=== PATIENT | female | born 1985 | race Caucasian/White ===

== ENCOUNTER 2019-09-15 18:41 | Inpatient (IN) | payer BC ==
[2019-09-15] MEDS ORDERED: BUTORPHANOL 1 MG/ML INJ IV PRN (21:17)
[2019-09-15] MEDS ORDERED: METHYLERGONOVINE 0.2MG/ML AMP IM PRN (21:17)
[2019-09-15] MEDS ORDERED: Ringers Lactate 1,000 ML IV PRN (21:17)
[2019-09-15] MEDS ORDERED: PROMETHAZINE INJ 25 MG/ML AMP IV PRN (21:17)
[2019-09-15] MEDS ORDERED: MEPERIDINE HCL 25 MG/0.5 ML IV PRN (21:17)
[2019-09-15] MEDS ORDERED: CARBOPROST TROME 250 MCG/ML IM PRN (21:17)
[2019-09-15 21:34] VITALS: BMI 30.9
[2019-09-15 21:43] LABS: Urine Appearance CLEAR; Urine Bilirubin NEGATIVE (NEG); Urine Blood NEGATIVE (NEG); Urine Color YELLOW; Urine Glucose NEGATIVE (NEG); Urine Protein NEGATIVE (NEG); Urine Specific Gravity <=1.005 (1.005-1.030)
[2019-09-15 21:48] LABS: Absolute Lymphocytes (CBC) 2.5 K/uL (0.7-4.9); Basophils % 0.2 % (0-1.3); Hematocrit 40.5 % (36.0-45.0); Lymphocytes % 26.7 % (15.3-44.8); MPV 11.6 fL (7.6-11.3); RBC Red Blood Cell Count 4.68 M/uL (3.86-4.86)
[2019-09-15 21:52] LABS: Urine Microscopic Reflex NO UMIC
[2019-09-15] MEDS ORDERED: Ringers Lactate 1,000 ML IV SCH (22:00)
[2019-09-15] MEDS ORDERED: OXYTOCIN/LR 20 UNIT/1,000 ML BAG IV SCH (22:00)
[2019-09-15] MEDS ORDERED: LIDOCAINE 1% MPF 30 ML VIAL ONE (23:09)
--- NOTE | 2019-09-16 00:21 | PREOPHP ---
Date of Admission: 09/15/2019 History: Ms. Hatfield is a 33-year-old female, 4, para 3-0-0-3, now at approx imately 39 weeks gestation, admitted in labor, noted to be 3 cm on admission. She denies rupture of membranes. Started yazmin somewhat earlier today. Past Medical History: Please see record. Family History: Please see record. Review of Systems: She reports no recent cough, cold, fever, or chills. No recent nausea or vomiting. No breast knots or lumps. No bowel or bladder issues. has been active. Physical Examination: General: Pleasant female, in mild discomfort. Neck: Supple without adenopathy or thyromegaly. Lungs: Clear. Cardiac: Regular rate and rhythm without murmurs. Breasts: Not examined. Abdomen: Estimated weight of 7+ to 8+ pounds. Pelvic: Cervix now is 7+ cm, dilated, vertex presentation, -1 station. Extremities: No cyanosis, clubbing, or edema. Impression: Term , active labor. Plan: We will await spontaneous vaginal delivery. MOLINA/FILIPPO Voice ID: [id number]
[2019-09-16] MEDS ORDERED: ACETAMINOPHEN 500 MG TAB PO PRN (01:08)
[2019-09-16] MEDS ORDERED: METHYLERGONOVINE 0.2MG/ML AMP IM PRN (01:08)
[2019-09-16] MEDS ORDERED: METHYLERGONOVINE 0.2 MG TAB PO PRN (01:08)
[2019-09-16] MEDS ORDERED: CARBOPROST TROME 250 MCG/ML IM PRN (01:08)
--- NOTE | 2019-09-16 01:12 | P.BOP ---
Preoperative diagnosis: 39 wk , AMA Postoperative diagnosis: SCVD viable female , mild shoulder dystocia Primary procedure: SCVD Secondary procedure: Samuel Estimated blood loss: less than 50 Complications: None Transferred to: Other (273) Condition: Good
[2019-09-16] MEDS ORDERED: OXYTOCIN/LR 20 UNIT/1,000 ML BAG IV SCH (02:00)
[2019-09-16 03:41] LABS: RPR (Rapid Plasma Reagin) NON-REACT (NON-REACT)
[2019-09-16] MEDS: IBUPROFEN 200 MG TAB PO PRN ×2 (05:30→12:25)
--- NOTE | 2019-09-16 09:09 | DN ---
Surgeon: Vimal Goldsmith MD Ms. Hatfield is a 33-year-old female, 4, para 3-0-0-3 at 39 weeks' gestation, admitted in early labor. She had a first stage of labor of approximately 3 hours 11 minutes, second stage of labor of 26 minutes. She delivered by spontaneous controlled vaginal delivery a 6-pound 12- ounce female infant. After delayed cord clamping, the was placed on mother's upper abdomen. Cord blood was obtained. Placenta was spontaneously expelled and appeared to be intact. Intrauterin e examination revealed no retained placental fragments. Quantitative blood loss was 114 mL. She had mild shoulder dystocia, treated with Samuel maneuver, received 1 mg of Stadol, 12.5 mg of Phenerg an IV for analgesia during her labor course. She suffered no lacerations. MOLINA/FILIPPO Voice ID: [id number] Report ID: [id number]
[2019-09-16] MEDS ORDERED: IBUPROFEN 600 MG TAB PO PRN (15:00)
[2019-09-17 08:37] VITALS: BP 127/76; TEMP 98.9
--- NOTE | 2019-09-17 10:34 | DS ---
Final Hospital Discharge Diagnosis: Term delivered, advanced maternal age. Complications: None. Procedures: Artificial rupture of membranes, spontaneous controlled vaginal delivery of viable femal e . Hospital Course: The patient is a 33-year-old female, 4, para 3-0-0-3 at 3 9 weeks gestation, admitted in active labor. She delivered a 6-pound 12-ounce female , 9 and 9 with IV analgesia. Was dismissed on the first day, ambulatory, on a select diet wi th routine post vaginal delivery activity restrictions, to be seen back in the office in 6 weeks. La b work included an admission hemoglobin and hematocrit of 13.3 and 40.5, dismissal of 35.6. She had a negative urinalysis, nonreactive RPR. She has Rh positive blood type. She was dismissed, to oumar valadez taking her iron and vitamins with usual post vaginal delivery activity restrictions. MOLINA/FILIPPO Voice ID: [id number] Report ID: [id number]
[2019-09-19 01:55] LABS: HBsAG Nonreactive (Nonreactive)
== END 2019-09-17 10:25 | disposition home or self-care (01) | DRG 807 ==
LOC: L&D 18:41 → 2ND-WC 20:48
PROVIDERS: ADMIT Specialist; ATTEND Specialist
PROC: 10E0XZZ Delivery of Products of Conception, External Approach (ICD-10-PCS; principal; 2019-09-16)
PROC: 10907ZC Drainage of Amniotic Fluid, Therapeutic from Products of Conception, Via Natural or Artificial Opening (ICD-10-PCS; 2019-09-16)
DX: O66.0 Obstructed labor due to shoulder dystocia (principal); Z37.0 Single live birth; Z3A.39 39 weeks gestation of pregnancy
CPT/HCPCS: 36415; 81003; 85014; 85025; 86592; 86850; 86900; 86901; 87340; J0595; J2210; J2550; J2590; J7120

== ENCOUNTER 2019-11-23 06:28 | Day surgery (SDC) | payer BC ==
[2019-11-22 13:17] LABS: Absolute Lymphocytes (CBC) 2.4 K/uL (0.7-4.9); Basophils % 0.3 % (0-1.3); Hematocrit 39.1 % (36.0-45.0); Lymphocytes % 43.2 % (15.3-44.8); MPV 8.4 fL (7.6-11.3); RBC Red Blood Cell Count 4.55 M/uL (3.86-4.86)
[2019-11-22 13:20] LABS: Urine Appearance CLOUDY; Urine Bilirubin NEGATIVE (NEG); Urine Blood 3+ (NEG); Urine Color YELLOW; Urine Glucose NEGATIVE (NEG); Urine Protein NEGATIVE (NEG); Urine Urobilinogen 0.2 mg/dL (0.2-1.0); Urine pH 5.5 (5.0-7.0)
[2019-11-22 13:41] LABS: Thyroid Stimulating Hormone 0.723 uIU/mL (0.360-3.740)
[2019-11-22 13:44] LABS: Urine Bacteria 20-50 /HPF (<20); Urine Culture Reflex Order REFLEXED; Urine Microscopic Reflex ORDER UMIC
[2019-11-23] MEDS ORDERED: SCOPOLAMINE HYDROBROMIDE PATCH TD ONE (07:01)
[2019-11-23] MEDS ORDERED: Ringers Lactate 1,000 ML IV ONE (07:02)
[2019-11-23] MEDS ORDERED: NA CHLORIDE 0.9% 1,000 ML ONE (07:07)
[2019-11-23] MEDS ORDERED: propofoL 200 MG/20 ML VIAL IV ONE ×2 (07:31→09:44)
[2019-11-23] MEDS ORDERED: FENTANYL CITR 100 MCG/2 ML ONE ×2 (07:31→09:42)
[2019-11-23] MEDS ORDERED: LIDOCAINE 2% MPF 5 ML VIAL ONE (07:31)
[2019-11-23] MEDS ORDERED: ROCURONIUM 50 MG/5 ML VIAL IV ONE (07:31)
[2019-11-23] MEDS ORDERED: MIDAZOLAM HCL 2 MG/2 ML INJ ONE (07:32)
[2019-11-23] MEDS ORDERED: KETOROLAC 30 MG/ML INJ ONE (07:32)
[2019-11-23] MEDS ORDERED: ONDANSETRON 4 MG/2 ML VIAL ONE (07:32)
[2019-11-23] MEDS ORDERED: dexAMETHasone 10 MG/ML VIAL ONE (07:32)
[2019-11-23] MEDS: BUPIVACAINE 0.5% Inj,MDV 50 mL VIAL ONE ×2 (07:54→08:15)
[2019-11-23] MEDS ORDERED: EPHEDRINE SULF 50 MG/ML VIAL ONE (08:51)
[2019-11-23] MEDS: Ringers Lactate 1,000 ML IV ONE ×2 (08:57→09:03)
[2019-11-23] MEDS ORDERED: GLYCOPYRROLATE 0.2 MG/ML SYR ONE (09:54)
[2019-11-23] MEDS ORDERED: NEOSTIGMINE 1 MG/ML -5 ML ONE (09:55)
[2019-11-23] MEDS ORDERED: ALBUTEROL 2.5 MG/3 ML NEB SOL ONE (10:22)
[2019-11-23 11:07] VITALS: O2SAT 98
[2019-11-23] MEDS ORDERED: HYDROCODONE/APAP 5/325 MG TAB ONE (11:47)
[2019-11-23 12:15] VITALS: BP 117/70; TEMP 98.3
--- NOTE | 2019-11-24 08:20 | OP ---
Date of Procedure: 11/23/2019 Surgeon: Natasha Lala MD Central Service Tech: Charley Soliz. Preoperative Diagnoses: Large left adnexal mass, possible dermoid, pelvic pain, menorrhagia, 2 month s , patient with intrauterine device. Postoperative Diagnoses: Large left adnexal mass, possible dermoid, pelvic pain, menorrhagia, 2 rossi hs , patient with intrauterine device, possible retained products of conception and left ov elias dermoid. Procedures Performed: 1.Removal of IUD, diagnostic hysteroscopy, D and C. 2.Diagnostic laparoscopy, pelvic washings, left ovarian cystectomy. Anesthesia: General endotracheal. Specimens: Left ovarian cyst (keratoma), endometrial curettings and possible retained products. IUD was discarded. Estimated Blood Loss: Minimal. Urine Output: 200. Complications: No complications. Drains: No drains. Condition: The patient's condition is stable. Findings: Some retained products appeared to be placental tissue in the posterior wall and the top o f the endometrial canal close to the left cornual end. Rest of the endometrium appeared to be unrema rkable. Then, the left ovarian dermoid appeared to be large and multi cystic, was excised completely and the ovary was retained. Both tubes appeared to be unremarkable. The right ovary was absent. The patient is a 33-year-old referred from Dr. Goldsmith for the left adnexal mass, which was close t o 10 cm and another one that was 3.5 cm. There was a suspicion that this could be from the right or the left. It was unclear after imaging. 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 She has had all vaginal deliveries, most recent one 2 months ago and her bleeding has been heavy when she presented to the office for evaluation for her teratomas. I decided to perform hysteroscop y, possible D and C since we were in the OR and if there was a D and C to be performed that I would r emove the IUD. The patient understood this. She consented she needs control with some form of intrauterine device, so she was given depot medroxyprogesterone for stopping her bleeding, which had slowed down her bleeding, however long-term is the Mirena. She was consented for an ovarian cystectomy and the procedure as above, hysteroscopy, D and C. Description Of Procedure: She was consented in the hospital before the surgery again and taken back to the OR. No antibiotics were indicated for this procedure, placed in a supine fashion. General an esthesia was given, placed in a dorsal lithotomy position. Pelvic exam was performed. Uterus found to be anteflexed, left adnexal mass mobile, was found about 10-12 cm and posterior cul-de-sac smooth and free. Abdomen, vulva, vagina, and perineum were prepped and draped in a sterile fashion. Arms t ucked by the side, placed the patient in dorsal lithotomy using Uriah stirrups. Time-out was done. After draping the patient appropriately, speculum was placed to expose the cervix. Anterior lip gras ped with 2 Allis clamps. The IUD had been displaced with the prep, was removed. Another IUD from [facility] office was ordered in order for her to be placed in the OR if there was no D and C needed. Once [facility] IUD was in the OR, then the case was started. So once the slimline scope was introduced, traversed under direct vision through the cervical canal into the uterine cavity. The endometrial canal appea red to be mostly undistorted. There was tissue as described above. On the posterior wall fundal tow ards the left cornual end, this probably is consistent with the description of tissue on the transvag inal ultrasound that measured up to 3 cm, so I decided that I would remove this tissue, so with the l argest curette present on the table, the uterine cavity was entered and 2 large pieces of this tissue was removed, 1 cm and then 2 cm. Then the scope was replaced. There was no more tissue left behind after taking good visual of this area again with the hysteroscope. Then, curettage was performed in general gently all around the endometrial cavity. This is to rule out gestational trophoblastic dis ease placenta either one could be the differential. The diagnostic VCare was introduced into the uterus and I had no intentions of replacing the IUD at t his time because I want to find out the pathology on the tissue before this was placed. After a Franco was placed and connected to a drainage bag this area was draped. 1 cm infraumbilical incision made with a scalpel using the open laparoscopy technique. Fascia incise d and tagged with 0 Vicryl sutures. Peritoneum entered sharply. S-retractors were placed. Xiomara i ntroduced. Insufflation done. Site of entry was checked, unremarkable. Patient placed in Trendelen prosper. Lower abdominal surfaces were all visualized. Omentum slightly adhered to the area of the rig ht oophorectomy, but no other remarkable adhesions. The ovary appeared to be on the left side with t he cyst and the cyst is multiloculated. The area of transition between the normal ovarian tissue and the cyst was identified after ports were placed suprapubic, 1 in each of the lower quadra nts, left and right under direct vision after injecting Marcaine at both the fascia and the skin. Go od visualization was done. Pelvic washings were performed and retrieved using a monopolar Storz needle, an incision was made at the junction between the cyst and the dermoid. A large incisi on was made in a circumferential fashion along the base of the cyst. Once the incision was made, the n I was able to peel the wall of the cyst away from its base. There was a slight perforation of the dermoid where it was thin-walled and this had started to drain. This was suctioned as best as possib le and then 0 Vicryl loop was placed to seal up the drainage. Then, the entire cyst was peeled off t he base. The capsule was also trimmed all around with the help of the LigaSure, then was able to rem ove and then the base of the ovary was thoroughly irrigated and suctioned. There was exce llent hemostasis. The tube safely remained attached to the ovary. The tube on the right side appear ed to be patent as well. There no evidence of any dilatation. Thorough irrigation and suction of th e pelvic cavity was performed, then the specimen was placed in an EndoCatch bag through the umbilical port using a 5 camera through the right. Once the specimen was bagged, there was thorough irrigatio n and suction performed with another 2 L of saline. Once this was all clear, no evidence of any fatt y tissue was there. Then, went on to desufflate, after hemostasis was checked, the base of the ovary . The specimen was retrieved through the suprapubic port. The incision was extended on the fascia a nd the skin to about 4 cm. Then, the bag was opened up, the circumference of the bag was held with h emostats. Then, using a tiny entry to the cyst wall, the drainage was suctioned with a Yankauer and the specimen was retrieved without too much spillage outside the bag. The fascia was closed with the help of 0 Vicryl in a continuous running fashion. Subcutaneous tissue s were thoroughly irrigated. There was no entry of the fluid from the cyst into the peritoneal cavit y. The subcutaneous tissues brought together with 3-0 chromic and all skin incisions closed with the help of chromic as well. Steri-Strips placed. Franco VCare removed. Did not place the IUD because I want to wait on the pathology report of the retained tissue or endometrial tissue and then place th e IUDs for control, so this could be done in the office as an outpatient. After the completion of the case, all instrument, needle, and sponges were counted and were correct. She tolerated the procedure well. She 30 mg of Toradol. She was then recovered from ane sthesia completely and taken to the PACU in stable condition. was the briefed on the finding s of the procedure and she has a 1 week appointment to follow up with us. JONNA Voice ID: [id number] Report ID: [id number]
== END 2019-11-23 12:30 | disposition home or self-care (01) ==
LOC: OR 06:28
PROVIDERS: ATTEND Obstetrics & Gynecology
PROC: 0UDB7ZX Extraction of Endometrium, Via Natural or Artificial Opening, Diagnostic (ICD-10-PCS; 2019-11-23)
PROC: 0UJD8ZZ Inspection of Uterus and Cervix, Via Natural or Artificial Opening Endoscopic (ICD-10-PCS; 2019-11-23)
PROC: 0UPD7HZ Removal of Contraceptive Device from Uterus and Cervix, Via Natural or Artificial Opening (ICD-10-PCS; 2019-11-23)
PROC: 0UB14ZZ Excision of Left Ovary, Percutaneous Endoscopic Approach (ICD-10-PCS; principal; 2019-11-23 07:30)
DX: D27.1 Benign neoplasm of left ovary (principal); N71.1 Chronic inflammatory disease of uterus; O72.0 Third-stage hemorrhage; Z30.432 Encounter for removal of intrauterine contraceptive device; N92.1 Excessive and frequent menstruation with irregular cycle; Z87.891 Personal history of nicotine dependence
CPT/HCPCS: 87088; 85025; 87086; 36415; 86900; 88108; 82310; 86850; 81025; 86901; 88300; 88305; 88311; 84443; 58662; 58558; 58301; J2704 ×2; J2250; J3010 ×2; J1100; J2710; J7120 ×2; J7030; J2405; 81003; 81015

== ENCOUNTER 2021-10-22 13:13 | Emergency (ER) | payer BC, SELFPAY ==
[2021-10-22 14:31] LABS: Absolute Lymphocytes (CBC) 0.5 K/uL (0.7-4.9); Hematocrit 44.5 % (36.0-45.0); Lymphocytes % 5.2 % (15.3-44.8); MPV 8.7 fL (7.6-11.3); RBC Red Blood Cell Count 5.33 M/uL (3.86-4.86)
[2021-10-22 14:44] LABS: Albumin 4.5 g/dL (3.4-5.0); Bilirubin Total 0.8 mg/dL (0.2-1.0); Potassium 3.8 mmol/L (3.5-5.1); Protein, Total 7.9 g/dL (6.4-8.2)
[2021-10-22] MEDS ORDERED: NA CHLORIDE 0.9% 1,000 ML ONE (14:51)
[2021-10-22] MEDS ORDERED: ONDANSETRON 4 MG/2 ML VIAL ONE (14:51)
[2021-10-22] MEDS ORDERED: FAMOTIDINE 20 MG/2 ML VIAL IV ONE (14:51)
[2021-10-22 16:04] LABS: Urine Blood Negative (Negative); Urine Glucose Negative (Negative); Urine Protein Negative (Negative); Urine pH 7.5 (5.0-7.0)
[2021-10-22] MEDS ORDERED: dexAMETHasone 10 MG/ML VIAL ONE (16:05)
[2021-10-22] MEDS ORDERED: DIAZEPAM 10 MG/2 ML INJ SYRINGE ONE (16:05)
[2021-10-22] MEDS ORDERED: KETOROLAC 30 MG/ML INJ ONE (16:06)
--- NOTE | 2021-10-22 17:47 | EDPHYS ---
Physician Documentation [facility] Name: Anai Hatfield Age: 35 yrs Sex: Female : 1985 Arrival Date: 10/22/2021 Time: 13:15 Bed 16 Private MD: ED Physician Darwin Donovan HPI: 10/22 14:02 This 35 yrs old Female presents to ER via Ambulatory with complaints of Vomiting, Leg jmm Pain. 14:02 The patient presents to the emergency department with nausea, vomiting, diarrhea. jmm Onset: The symptoms/episode began/occurred acutely, last night. Possible causes: unknown. The symptoms are aggravated by nothing. The symptoms are alleviated by nothing. Associated signs and symptoms: Pertinent positives:. This is a 35 year old female with a history of depression that presents to the ED with complaints of vomiting, diarrhea, body aches beginning yesterday. Patient states now having pain in her lower back which radiates down her left leg. States having a history of previous spine injuries. Patient is able to ambulate. . Historical: - Allergies: 15:12 No Known Allergies; vg1 - Home Meds: 15:12 Wellbutrin Oral [Active]; Flexeril Oral [Active]; vg1 - PMHx: 15:12 Depressive disorder; vg1 - PSHx: 15:12 Left Ovary; vg1 - Immunization history:: Client reports having NOT received the Covid vaccine. - Social history:: Smoking status: Patient denies any tobacco usage or history of. ROS: 14:02 Constitutional: Negative for fever, chills, and weight loss, Cardiovascular: Negative jmm for chest pain, palpitations, and edema, Respiratory: Negative for shortness of breath, cough, wheezing, and pleuritic chest pain. 14:02 Abdomen/GI: Positive for vomiting. 14:02 All other systems are negative. Exam: 14:02 Constitutional: This is a well developed, well nourished patient who is awake, alert, jmm and in no acute distress. Head/Face: atraumatic. Eyes: EOMI, no conjunctival erythema appreciated ENT: Moist Mucus Membranes Neck: Trachea midline, Supple Chest/axilla: Normal chest wall appearance and motion. Cardiovascular: Regular rate and rhythm. No edema appreciated Respiratory: Normal respirations, no respiratory distress appreciated Abdomen/GI: Non distended, soft Back: Normal ROM Skin: General appearance color normal 14:02 MS/ Extremity: Moves all extremities, no obvious deformities appreciated, no edema noted to the lower extremities Neuro: Awake and alert Psych: Behavior is normal, Mood is normal, Patient is cooperative and pleasant 14:02 Abdomen/GI: Inspection: abdomen appears normal, Bowel sounds: normal, Palpation: abdomen is soft and non-tender, in all quadrants. Vital Signs: 15:00 BP 112 / 74; Pulse 90; Resp 16; Pulse Ox 99% on R/A; vg1 16:15 BP 101 / 66; Pulse 93; Resp 16; Pulse Ox 98% on R/A; vg1 17:30 BP 106 / 67; Pulse 90; Resp 16; Pulse Ox 100% on R/A; vg1 MDM: 14:02 Patient medically screened. [facility] 17:45 Data reviewed: vital signs, nurses notes. Counseling: I had a detailed discussion with ella the patient and/or guardian regarding: the historical points, exam findings, and any diagnostic results supporting the discharge/admit diagnosis, lab results, the need for outpatient follow up, to return to the emergency department if symptoms worsen or persist or if there are any questions or concerns that arise at home. 10/22 14:02 Order name: CBC with Diff; Complete Time: 14:45 [facility] 10/22 14:02 Order name: CMP; Complete Time: 14:45 [facility] 10/22 14:02 Order name: Lipase; Complete Time: 14:45 [facility] 10/22 16:04 Order name: Urine Dipstick-Ancillary; Complete Time: 16:18 [facility] 10/22 16:27 Order name: Urine --Ancillary (enter results) bd 10/22 14:02 Order name: IV Saline Lock; Complete Time: 14:22 [facility] 10/22 14:02 Order name: Labs collected and sent; Complete Time: 14:22 [facility] 10/22 14:02 Order name: Urine Dipstick-Ancillary (obtain specimen); Complete Time: 16:04 [facility] 10/22 14:02 Order name: Urine Test (obtain specimen); Complete Time: 16:04 [facility] Administered Medications: 14:51 Drug: NS 0.9% 1000 ml Route: IV; Rate: 1 bolus; Site: left antecubital; howard 16:18 Follow up: IV Status: Completed infusion; IV Intake: 1000ml vg1 14:51 Drug: Pepcid (famotidine) 20 mg Route: IVP; Site: left antecubital; howard 14:51 Follow up: Response: No adverse reaction howard 14:51 Drug: Zofran (Ondansetron) 4 mg Route: IVP; Site: left antecubital; howard 14:51 Follow up: Response: No adverse reaction howard 16:00 Drug: Ketorolac 30 mg Route: IVP; Site: left antecubital; vg1 17:33 Follow up: Response: No adverse reaction; Pain is decreased vg1 16:02 Drug: Decadron - Dexamethasone 10 mg Route: IVP; Site: left antecubital; vg1 17:33 Follow up: Response: No adverse reaction; Pain is decreased vg1 16:04 Drug: Valium (diazepam) 2 mg Route: IVP; Site: left antecubital; vg1 17:33 Follow up: Response: No adverse reaction; Marked relief of symptoms vg1 Disposition Summary: 10/22/21 17:46 Discharge Ordered Location: Home [facility] Condition: Stable [facility] Diagnosis - Sciatica, left side jmm - Vomiting jmm - Diarrhea, unspecified jmm Followup: [facility] - With: Private Physician - When: 2 - 3 days - Reason: Recheck today's complaints, Continuance of care, Re-evaluation by your physician Discharge Instructions: - Discharge Summary Sheet [facility] - Food Choices to Help Relieve Diarrhea, Adult jmm - Vomiting, Adult jmm - Sciatica Rehab-SportsMed [facility] Forms: - Medication Reconciliation Form [facility] - Thank You Letter [facility] - Antibiotic Education [facility] - Prescription Opioid Use [facility] Prescriptions: - ondansetron 4 mg Oral tablet,disintegrating - place 2 tablet by TRANSLINGUAL route every 6 hours As needed; 30 tablet; [facility] Refills: 0, Product Selection Permitted - Diclofenac Sodium 75 mg Oral Tablet Sustained Release - take 1 tablet by ORAL route 2 times per day; 30 tablet; Refills: 0, Product [facility] Selection Permitted - promethazine 25 mg Oral Tablet - take 1 tablet by ORAL route every 6 hours As needed; 30 tablet; Refills: 0, [facility] Product Selection Permitted - orphenadrine citrate 100 mg Oral Tablet Sustained Release - take 1 tablet by ORAL route 2 times per day As needed; 20 tablet; Refills: 0, jmm Product Selection Permitted Signatures: Dispatcher [employer] EDJuan Musa PA PA jmm Garcia, Victoria, RN RN vg1 Quita Manriquez RN RN howard
--- NOTE | 2021-10-22 17:47 | ER ---
Nurse's Notes [facility] Name: Anai Hatfield Age: 35 yrs Sex: Female : 1985 Arrival Date: 10/22/2021 Time: 13:15 Bed 16 Private MD: Diagnosis: Sciatica, left side;Vomiting;Diarrhea, unspecified Presentation: 10/22 14:30 Chief complaint: Patient states: vomiting and diarrhea and body aches and pain down iw left leg. Coronavirus screen: Client presents with at least one sign or symptom that may indicate coronavirus-19. Ebola Screen: Patient negative for fever greater than or equal to 101.5 degrees Fahrenheit, and additional compatible Ebola Virus Disease symptoms Patient denies exposure to infectious person. Patient denies travel to an Ebola-affected area in the 21 days before illness onset. No symptoms or risks identified at this time. Initial Sepsis Screen: Does the patient meet any 2 criteria? No. Patient's initial sepsis screen is negative. Does the patient have a suspected source of infection? No. Patient's initial sepsis screen is negative. Risk Assessment: Do you want to hurt yourself or someone else? Patient reports no desire to harm self or others. Onset of symptoms was October 22, 2021. 14:30 Method Of Arrival: Ambulatory iw 14:30 Acuity: DIMITRIOS 3 iw Historical: - Allergies: 15:12 No Known Allergies; vg1 - Home Meds: 15:12 Wellbutrin Oral [Active]; Flexeril Oral [Active]; vg1 - PMHx: 15:12 Depressive disorder; vg1 - PSHx: 15:12 Left Ovary; vg1 - Immunization history:: Client reports having NOT received the Covid vaccine. - Social history:: Smoking status: Patient denies any tobacco usage or history of. Screenin:08 Abuse screen: Denies threats or abuse. Nutritional screening: No deficits noted. vg1 Tuberculosis screening: No symptoms or risk factors identified. Fall Risk No fall in past 12 months (0 pts). No secondary diagnosis (0 pts). IV access (20 points). Ambulatory Aid- None/Bed Rest/Nurse Assist (0 pts). Gait- Normal/Bed Rest/Wheelchair (0 pts) Mental Status- Oriented to own ability (0 pts). Total Willis Fall Scale indicates No Risk (0-24 pts). Assessment: 15:02 General: Appears uncomfortable, Behavior is calm, cooperative. Pain: Complains of pain vg1 in right leg and left leg and lower back pain Pain currently is 9 out of 10 on a pain scale. Pain began this morning. Neuro: Rodriguez Agitation-Sedation Scale (RASS): +1 Restless Level of Consciousness is awake, alert, obeys commands, Oriented to person, place, time, situation, Denies. Cardiovascular: Patient's skin is warm and dry. Respiratory: Airway is patent Respiratory effort is even, unlabored. GI: Abdomen is flat, non-distended, Patient currently denies abdominal pain. : No signs and/or symptoms were reported regarding the genitourinary system. EENT: No signs and/or symptoms were reported regarding the EENT system. Derm: Skin is intact, is healthy with good turgor. Musculoskeletal: Circulation, motion, and sensation intact. 16:00 Reassessment: Patient appears in no apparent distress at this time. No changes from vg1 previously documented assessment. Patient and/or family updated on plan of care and expected duration. Pain level reassessed. Patient is alert, oriented x 3, equal unlabored respirations, skin warm/dry/pink. Vital Signs: 15:00 BP 112 / 74; Pulse 90; Resp 16; Pulse Ox 99% on R/A; vg1 16:15 BP 101 / 66; Pulse 93; Resp 16; Pulse Ox 98% on R/A; vg1 17:30 BP 106 / 67; Pulse 90; Resp 16; Pulse Ox 100% on R/A; vg1 ED Course: 13:15 Patient arrived in ED. as 13:59 Juan Edmonds PA is PHCP. jmm 13:59 Darwin Donovan MD is Attending Physician. jmm 14:22 Initial lab(s) drawn, by me, sent to lab. Inserted saline lock: 20 gauge in left em1 antecubital area, using aseptic technique. Blood collected. 14:30 Triage completed. iw 14:31 Arm band placed on. iw 14:36 María Dawkins, RN is Primary Nurse. vg1 15:08 No provider procedures requiring assistance completed. vg1 15:08 Patient has correct armband on for positive identification. Bed in low position. Call vg1 light in reach. Side rails up X 1. Adult w/ patient. 18:24 IV discontinued, intact, Pressure dressing applied. howard Administered Medications: 14:51 Drug: NS 0.9% 1000 ml Route: IV; Rate: 1 bolus; Site: left antecubital; howard 16:18 Follow up: IV Status: Completed infusion; IV Intake: 1000ml vg1 14:51 Drug: Pepcid (famotidine) 20 mg Route: IVP; Site: left antecubital; howard 14:51 Follow up: Response: No adverse reaction howard 14:51 Drug: Zofran (Ondansetron) 4 mg Route: IVP; Site: left antecubital; howard 14:51 Follow up: Response: No adverse reaction howard 16:00 Drug: Ketorolac 30 mg Route: IVP; Site: left antecubital; vg1 17:33 Follow up: Response: No adverse reaction; Pain is decreased vg1 16:02 Drug: Decadron - Dexamethasone 10 mg Route: IVP; Site: left antecubital; vg1 17:33 Follow up: Response: No adverse reaction; Pain is decreased vg1 16:04 Drug: Valium (diazepam) 2 mg Route: IVP; Site: left antecubital; vg1 17:33 Follow up: Response: No adverse reaction; Marked relief of symptoms vg1 Intake: 16:18 IV: 1000ml; Total: 1000ml. vg1 Outcome: 17:46 Discharge ordered by MD. sepulveda 18:24 Discharged to home with family. 18:24 Condition: good 18:24 Discharge instructions given to patient, family, Prescriptions given X 4. 18:24 Patient left the ED. howard Signatures: Juan Edmonds PA PA jmm Martinez, Amelia as Williams, Irene, RN Ranjit Reeves em1 María Dawkins, RN RN vg1 Quita Manriquez RN RN howard
[2021-10-22 20:51] VITALS: BP 106/67; O2SAT 100
== END 2021-10-22 18:24 | disposition home or self-care (01) ==
LOC: ER 13:13
DX: R11.10 Vomiting, unspecified (principal); R19.7 Diarrhea, unspecified; M54.32 Sciatica, left side; F32.A Depression, unspecified
CPT/HCPCS: 36415; 80053; 81003; 81025; 83690; 85025; 96361; 96374; 96375; 99284; J1100; J2405; J3360; J3490; J7030